=== PATIENT | female | born 1965 | race Caucasian/White ===

== ENCOUNTER → 2017-11-09 | Outpatient (CLI) | payer BC ==
--- NOTE | 2017-11-10 07:49 | XR ---
EXAMINATION TYPE: XR chest 2V DATE OF EXAM: 11/09/2017 COMPARISON: NONE HISTORY: History of asthma with shortness of breath. TECHNIQUE: Frontal and lateral views of the chest are obtained. FINDINGS: There is no focal air space opacity, pleural effusion, or pneumothorax seen. The cardiac silhouette size is mildly enlarged. The osseous structures are intact. IMPRESSION: Mild cardiomegaly without acute pulmonary process.
[2017-11-13 12:10] LABS: Alt. alternata IgE Class CLASS IV; Asperg. fumagatus IgE Class CLASS IV; Bermuda Grass IgE <0.35 kU/L (<0.35); Birch(Com.Silvr) IgE 0.83 kU/L (<0.35); Birch(Com.Silvr) IgE Class CLASS II; Cat Epith & Dander IgE >100.00 kU/L (<0.35); Cat Epith & Dander IgE Class CLASS VI; Clad herbarum IgE 0.55 kU/L (<0.35); Cockroach IgE 0.46 kU/L (<0.35); Dermato. Pteronyssinus IgE <0.35 kU/L (<0.35); Dermato. farinae IgE 0.48 kU/L (<0.35); Dermato. farinae IgE Class CLASS I; Maple (Box Elder) IgE Class CLASS III; Mountain Cedar IgE Class CLASS II; Mouse Urine IgE Class CLASS 0; Nettle IgE Class CLASS II; Oak IgE 0.98 kU/L (<0.35); Penicillium notatum IgE Class CLASS III; Rough Marshelder IgE 0.55 kU/L (<0.35); Rough Marshelder IgE Class CLASS I; Timothy Grass IgE 0.85 kU/L (<0.35); White Ash IgE Class CLASS II
[2017-11-15 13:49] LABS: Alternaria Alternata IgG 3.4 mcg/mL (< 13.6); Aspergillus fumigatus IgG Not detected (Not detected); Aureobasidium pullulans IgG 3.3 mcg/mL (< 13.6); Cladosporium herbarium IgG 9.4 mcg/mL (< 14.7); Phoma ssp. IgG 5.2 mcg/mL (< 6.6); Saccaharomospora viridis Not detected (Not detected); Saccaharopoly. rectivirgula Not detected (Not detected)
== END | disposition home or self-care (01) ==
LOC: RADXRMAIN 16:11
PROVIDERS: ATTEND Internal Medicine Sleep Medicine
DX: I51.7 Cardiomegaly (principal); R05 Cough; B44.1 Other pulmonary aspergillosis
CPT/HCPCS: 36415; 71046; 82785; 86001; 86003; 86606; 86609

== ENCOUNTER → 2018-01-10 | Outpatient (CLI) | payer BC ==
--- NOTE | 2018-01-10 16:20 | CT ---
EXAMINATION TYPE: CT chest wo con DATE OF EXAM: 01/10/2018 COMPARISON: Chest x-ray November 09, 2017 HISTORY: suspected pulmonary fibrosis unspecified per order. Shortness of breath and cough. CT DLP: 196.0 mGycm. Automated Exposure Control for Dose Reduction was Utilized. TECHNIQUE: CT scan of the thorax is performed without IV contrast. High resolution protocol with 1 m m sequences obtained in 10 mm intervals in both supine and prone techniques. FINDINGS: LUNGS: Some respiratory motion artifact degradation present. No suspicious focal consolidation or gladys undglass opacity identified. There is no cyst significant distortion, peripheral reticulation, or fib rosis noted. Mild focal pleural thickening medial right middle lobe is present. No significant pleura l effusion or pneumothorax is identified. Mild right greater than left biapical pleural/parenchymal s carring. No bronchiectasis is seen. No suspicious masses noted. MEDIASTINUM: Lack of IV contrast is noted to limit evaluation for mediastinal and especially hilar a denopathy. There are no definitive greater than 1 cm hilar or mediastinal lymph nodes. No significa nt pericardial effusion is seen. Mild cardiomegaly is redemonstrated OTHER: 1 cm gallstone in gallbladder is present. IMPRESSION: Mild scattered areas of scarring. No significant peripheral fibrosis. No suspicious acute pulmonary process.
== END | disposition home or self-care (01) ==
LOC: RADCTMAIN 15:52
PROVIDERS: ATTEND Internal Medicine Sleep Medicine
DX: J98.4 Other disorders of lung (principal)
CPT/HCPCS: 71250

== ENCOUNTER 2018-09-27 10:29 | Emergency (ER) | payer BC ==
[2018-09-27 10:48] VITALS: RESP 18
[2018-09-27] MEDS ORDERED: KETOROLAC 30 MG/ML 1 ML VIAL IVP STA (11:13)
[2018-09-27] MEDS ORDERED: SODIUM CHLORIDE 0.9% 1,000 ML IV ONE (11:13)
[2018-09-27] MEDS ORDERED: MORPHINE SULFATE 4 MG/ML SYRINGE IVP STA (11:13)
--- NOTE | 2018-09-27 11:35 | ED ---
General Adult HPI - General Chief complaint: Abdominal Pain Stated complaint: Kidney stone Time Seen by Provider: 09/27/18 10:55 Source: patient, RN notes reviewed, old records reviewed Mode of arrival: ambulatory Limitations: no limitations - History of Present Illness Initial comments: 53-year-old female history of previous kidney stone presenting with right flank pain. Patient has had dysuria over the past one week, she was started on ciprofloxacin by her primary care physician for urinary tract infection. She's developed worsening pain and fever. Pain is typical of previous kidney stones. She's had nausea and vomiting. She was no other chronic medical problems, otherwise healthy. - Related Data Home Medications Medication Instructions Recorded Confirmed Ciprofloxacin HCl [Cipro] 500 mg PO Q12HR 09/27/18 09/27/18 Fluticasone/Vilanterol [Breo 1 puff INHALATION RT-DAILY 09/27/18 09/27/18 Ellipta 100-25 Mcg Inhaler] Ibuprofen [Motrin] 600 mg PO Q8HR PRN 09/27/18 09/27/18 Losartan Potassium 100 mg PO DAILY 09/27/18 09/27/18 ZOLMitriptan 5 mg PO DAILY PRN 09/27/18 09/27/18 amLODIPine BESYLATE [Norvasc] 5 mg PO DAILY 09/27/18 09/27/18 cloNIDine HCL 0.3 mg PO DAILY 09/27/18 09/27/18 Previous Rx's Medication Instructions Recorded HYDROcodone/APAP 5-325MG [[place] 1 tab PO Q6HR PRN #12 tab 09/27/18 5-325] Ibuprofen [Motrin] 600 mg PO Q8HR PRN #24 tab 09/27/18 Ondansetron Odt [Zofran Odt] 4 mg PO Q8HR PRN #10 tab 09/27/18 Sulfamethox-Tmp 800-160Mg [Bactrim 1 tab PO Q12HR #28 tab 09/27/18 DS 800-160 mg] Tamsulosin [Flomax] 0.4 mg PO DAILY #30 cap 09/27/18 Allergies Allergy/AdvReac Type Severity Reaction Status Date / Time Penicillins Allergy Unknown Verified 09/27/18 11:37 Childhood Review of Systems ROS Statement: Those systems with pertinent positive or pertinent negative responses have been documented in the HPI. ROS Other: All systems not noted in ROS Statement are negative. Past Medical History Past Medical History: Hypertension Additional Past Medical History / Comment(s): Kidney stones, mitral valve prolapse History of Any Multi-Drug Resistant Organisms: None Reported Additional Past Surgical History / Comment(s): Kidney stone removes Past Psychological History: No Psychological Hx Reported Smoking Status: Never smoker Past Alcohol Use History: None Reported Past Drug Use History: None Reported General Exam Limitations: no limitations General appearance: alert, in no apparent distress Head exam: Present: atraumatic, normocephalic Eye exam: Present: normal appearance, PERRL ENT exam: Present: normal exam Neck exam: Present: normal inspection. Absent: tenderness, meningismus Respiratory exam: Present: normal lung sounds bilaterally. Absent: respiratory distress, wheezes, rales Cardiovascular Exam: Present: regular rate, normal rhythm GI/Abdominal exam: Present: soft. Absent: distended, tenderness Extremities exam: Present: normal inspection, normal capillary refill Back exam: Present: CVA tenderness (R) Neurological exam: Present: alert, oriented X3 Psychiatric exam: Present: normal affect, normal mood Skin exam: Present: warm, dry, intact. Absent: cyanosis, diaphoretic Course Vital Signs 09/27/18 09/27/18 10:42 11:23 Temperature 98.8 F Pulse Rate 89 65 Respiratory 18 18 Rate Blood Pressure 173/102 146/94 O2 Sat by Pulse 98 96 Oximetry Medical Decision Making - Medical Decision Making 53 -year-old female presenting for evaluation of flank pain, consistent with previous kidney stone. Emergency department reveals normal CBC, normal CMP with the exception of mild transaminitis. X-ray shows bilateral nephrolithiasis as well as concern for past. CT is obtained, shows right hydronephrosis, hydroureter, 3 mm distal stone at the UVJ. Urinalysis is consistent with kidney stone, showing 150), 7 white cells and moderate bacteria. Culture is obtained. Patient is currently on antibiotics she will be continued on antibiotics. Regarding cholelithiasis on CT, patient has no right upper quadrant pain or tenderness. She is informed that she has gallstones and will return with development of associated symptoms. She was offered observation for symptomatic control. She declines. Prefers outpatient follow-up. She will be prescribed pain control, antiemetics, Flomax, and antibiotics. She has an appointment with urology in the next week. She will return with worsening or changing symptoms. - Lab Data Result diagrams: 09/27/18 11:15 09/27/18 11:15 Lab Results 09/27/18 09/27/18 09/27/18 Range/Units 11:15 11:15 11:15 WBC 9.9 (3.8-10.6) k/uL RBC 5.00 (3.80-5.40) m/uL Hgb 14.5 (11.4-16.0) gm/dL Hct 43.9 (34.0-46.0) % MCV 87.8 (80.0-100.0) fL MCH 29.0 (25.0-35.0) pg MCHC 33.0 (31.0-37.0) g/dL RDW 14.4 (11.5-15.5) % Plt Count 274 (150-450) k/uL Neutrophils % 71 % Lymphocytes % 14 % Monocytes % 6 % Eosinophils % 6 % Basophils % 1 % Neutrophils # 7.0 (1.3-7.7) k/uL Lymphocytes # 1.4 (1.0-4.8) k/uL Monocytes # 0.6 (0-1.0) k/uL Eosinophils # 0.6 (0-0.7) k/uL Basophils # 0.1 (0-0.2) k/uL PT 9.7 (9.0-12.0) sec INR 0.9 (<1.2) APTT 22.2 (22.0-30.0) sec Sodium 143 (137-145) mmol/L Potassium 3.6 (3.5-5.1) mmol/L Chloride 106 (98-107) mmol/L Carbon Dioxide 28 (22-30) mmol/L Anion Gap 9 mmol/L BUN 19 H (7-17) mg/dL Creatinine 0.64 (0.52-1.04) mg/dL Est GFR (CKD-EPI)AfAm >90 (>60 ml/min/1.73 sqM) Est GFR (CKD-EPI)NonAf >90 (>60 ml/min/1.73 sqM) Glucose 88 (74-99) mg/dL Plasma Lactic Acid Jose (0.7-2.0) mmol/L Calcium 9.6 (8.4-10.2) mg/dL Total Bilirubin 0.6 (0.2-1.3) mg/dL AST 53 H (14-36) U/L ALT 65 H (9-52) U/L Alkaline Phosphatase 95 (38-126) U/L Total Protein 7.2 (6.3-8.2) g/dL Albumin 4.4 (3.5-5.0) g/dL Amylase 41 (30-110) U/L Lipase 84 (23-300) U/L Urine Color Urine Appearance (Clear) Urine pH (5.0-8.0) Ur Specific [place] (1.001-1.035) Urine Protein (Negative) Urine Glucose (UA) (Negative) Urine Ketones (Negative) Urine Blood (Negative) Urine Nitrite (Negative) Urine Bilirubin (Negative) Urine Urobilinogen (<2.0) mg/dL Ur Leukocyte Esterase (Negative) Urine RBC (0-5) /hpf Urine WBC (0-5) /hpf Ur Squamous Epith Cells (0-4) /hpf Urine Bacteria (None) /hpf Urine Mucus (None) /hpf 09/27/18 09/27/18 Range/Units 11:15 11:15 WBC (3.8-10.6) k/uL RBC (3.80-5.40) m/uL Hgb (11.4-16.0) gm/dL Hct (34.0-46.0) % MCV (80.0-100.0) fL MCH (25.0-35.0) pg MCHC (31.0-37.0) g/dL RDW (11.5-15.5) % Plt Count (150-450) k/uL Neutrophils % % Lymphocytes % % Monocytes % % Eosinophils % % Basophils % % Neutrophils # (1.3-7.7) k/uL Lymphocytes # (1.0-4.8) k/uL Monocytes # (0-1.0) k/uL Eosinophils # (0-0.7) k/uL Basophils # (0-0.2) k/uL PT (9.0-12.0) sec INR (<1.2) APTT (22.0-30.0) sec Sodium (137-145) mmol/L Potassium (3.5-5.1) mmol/L Chloride (98-107) mmol/L Carbon Dioxide (22-30) mmol/L Anion Gap mmol/L BUN (7-17) mg/dL Creatinine (0.52-1.04) mg/dL Est GFR (CKD-EPI)AfAm (>60 ml/min/1.73 sqM) Est GFR (CKD-EPI)NonAf (>60 ml/min/1.73 sqM) Glucose (74-99) mg/dL Plasma Lactic Acid Jose 1.4 (0.7-2.0) mmol/L Calcium (8.4-10.2) mg/dL Total Bilirubin (0.2-1.3) mg/dL AST (14-36) U/L ALT (9-52) U/L Alkaline Phosphatase (38-126) U/L Total Protein (6.3-8.2) g/dL Albumin (3.5-5.0) g/dL Amylase (30-110) U/L Lipase (23-300) U/L Urine Color Yellow Urine Appearance Cloudy H (Clear) Urine pH 6.0 (5.0-8.0) Ur Specific [place] 1.024 (1.001-1.035) Urine Protein Trace H (Negative) Urine Glucose (UA) Negative (Negative) Urine Ketones Negative (Negative) Urine Blood Moderate H (Negative) Urine Nitrite Negative (Negative) Urine Bilirubin Negative (Negative) Urine Urobilinogen <2.0 (<2.0) mg/dL Ur Leukocyte Esterase Trace H (Negative) Urine RBC 159 H (0-5) /hpf Urine WBC 7 H (0-5) /hpf Ur Squamous Epith Cells 13 H (0-4) /hpf Urine Bacteria Moderate H (None) /hpf Urine Mucus Moderate H (None) /hpf Disposition Clinical Impression: Cholelithiasis, Nephrolithiasis Disposition: HOME SELF-CARE Condition: Good Instructions (If sedation given, give patient instructions): Kidney Stones (ED), Renal Colic (ED), Gallstones (ED) Prescriptions: Sulfamethox-Tmp 800-160Mg [Bactrim DS 800-160 mg] 1 tab PO Q12HR #28 tab Tamsulosin [Flomax] 0.4 mg PO DAILY #30 cap Ibuprofen [Motrin] 600 mg PO Q8HR PRN #24 tab PRN Reason: Pain HYDROcodone/APAP 5-325MG [[place] 5-325] 1 tab PO Q6HR PRN #12 tab PRN Reason: Pain Ondansetron Odt [Zofran Odt] 4 mg PO Q8HR PRN #10 tab PRN Reason: Vomiting Is patient prescribed a controlled substance at d/c from ED?: No Referrals: Pool Tavares DO [Primary Care Provider] - 1-2 days Time of Disposition: 13:25
[2018-09-27 12:19] LABS: Basophils # (A) 0.1 k/uL (0-0.2); Basophils % (A) 1 %; Eosinophils # (A) 0.6 k/uL (0-0.7); Eosinophils % (A) 6 %; HCT 43.9 % (34.0-46.0); HGB 14.5 gm/dL (11.4-16.0); Lymphocytes # (A) 1.4 k/uL (1.0-4.8); Lymphocytes % (A) 14 %; MCV 87.8 fL (80.0-100.0); Mean Platelet Volume 9.8; Monocytes # (A) 0.6 k/uL (0-1.0); Monocytes % (A) 6 %; Neutrophils % (A) 71 %; Platelet Count 274 k/uL (150-450); RDW 14.4 % (11.5-15.5); WBC 9.9 k/uL (3.8-10.6)
[2018-09-27 12:22] LABS: Appearance,Urine Cloudy (Clear); Bacteria,Urine Moderate /hpf; Bilirubin,Urine Negative (Negative); Blood,Urine Moderate (Negative); Color,Urine Yellow; Glucose,Urine (UA) Negative (Negative); Ketones,Urine Negative (Negative); Leukocyte Esterase,Urine Trace (Negative); Mucus,Urine Moderate /hpf; Nitrite,Urine Negative (Negative); Protein,Urine Trace (Negative); RBC,Urine 159 /hpf (0-5); Specific Gravity,Urine 1.024 (1.001-1.035); Squamous Epithelial Cell,Urine 13 /hpf (0-4); Urobilinogen,Urine <2.0 mg/dL (<2.0); WBC,Urine 7 /hpf (0-5)
--- NOTE | 2018-09-27 12:33 | XR ---
EXAMINATION TYPE: XR KUB DATE OF EXAM: 09/27/2018 COMPARISON: NONE HISTORY: Right flank pain TECHNIQUE: One view abdominal series FINDINGS: The osseous structures are intact. The bowel gas pattern is nonspecific. Intrauterine device noted. Calcifications in the pelvis are nonspecific. Arthropathy of the hips.. Suspect punctate calcifications overlying both kidneys. Larger calcification right upper quadrant lik batsheva related to gallstones. IMPRESSION: 1. Tiny bilateral nephrolithiasis all measuring less than 5 millimeters. 2. Suspect gallstone.
--- NOTE | 2018-09-27 12:39 | CT ---
EXAMINATION TYPE: CT abdomen pelvis wo con DATE OF EXAM: 09/27/2018 COMPARISON: None HISTORY: Right sided flank pain with increased frequency of urination CT DLP: 715.5 mGycm Automated exposure control for dose reduction was used. TECHNIQUE: Helical acquisition of images was performed from the lung bases through the pelvis. FINDINGS: LUNG BASES: Subsegmental changes involving the posterior lung bases most typical of atelectasis. Hear t is mildly prominent. Trace of pericardial fluid noted. LIVER/GB: Assessment liver limited by lack of contrast. There is a large gallstone. PANCREAS: No significant abnormality is seen. SPLEEN: No significant abnormality is seen. ADRENALS: No significant abnormality is seen. KIDNEYS: Right kidney: There is moderate right hydronephrosis secondary to a right UVJ calcification measuring approximately 3 mm. There are approximately 5 punctate less than 5 mm calcifications involving the right kidney. Area of low density measuring less than a centimeter within the mid to upper pole right kidney is ind eterminate by noncontrast technique. Left kidney: There are approximately 7 less than 5 mm calculi scattered throughout the left renal col lecting system with no evidence of hydronephrosis. FREE AIR: No free air is visualized RETROPERITONEAL ADENOPATHY: None visualized REPRODUCTIVE ORGANS: Intrauterine device noted URINARY BLADDER: No significant abnormality is seen. PELVIC ADENOPATHY: None visualized. OSSEOUS STRUCTURES: No significant abnormality is seen. BOWEL: Bowel gas pattern nonspecific with no obstruction. Appendix normal. Small hiatal hernia noted . Occasional colonic diverticula identified with no CT evidence of diverticulitis. OTHER: Aorta of normal caliber. No free fluid. IMPRESSION: BILATERAL NEPHROLITHIASIS WITH MODERATE RIGHT HYDRONEPHROSIS SECONDARY TO OBSTRUCTING 3 MM RIGHT UVJ CALCIFICATION CHOLELITHIASIS.
[2018-09-27 12:41] LABS: ALT 65 U/L (9-52); AST 53 U/L (14-36); Albumin 4.4 g/dL (3.5-5.0); Alkaline Phosphatase 95 U/L (38-126); Amylase 41 U/L (30-110); Anion Gap 9 mmol/L; Blood Urea Nitrogen 19 mg/dL (7-17); Calcium 9.6 mg/dL (8.4-10.2); Carbon Dioxide 28 mmol/L (22-30); Chloride 106 mmol/L (98-107); Glucose 88 mg/dL (74-99); Lipase 84 U/L (23-300); Potassium 3.6 mmol/L (3.5-5.1); Sodium 143 mmol/L (137-145); Total Bilirubin 0.6 mg/dL (0.2-1.3); Total Protein 7.2 g/dL (6.3-8.2)
[2018-09-27 12:45] LABS: INR 0.9 (<1.2); Partial Thromboplastin Time 22.2 sec (22.0-30.0); Prothrombin Time 9.7 sec (9.0-12.0)
[2018-09-27 13:47] VITALS: BP 137/77; PULSE 67; TEMP 98.6
== END 2018-09-27 13:46 | disposition home or self-care (01) ==
LOC: EC 10:29
DX: N13.2 Hydronephrosis with renal and ureteral calculous obstruction (principal); K80.20 Calculus of gallbladder without cholecystitis without obstruction; I10 Essential (primary) hypertension; Z86.79 Personal history of other diseases of the circulatory system; Z98.890 Other specified postprocedural states; Z79.51 Long term (current) use of inhaled steroids; Z79.899 Other long term (current) drug therapy; Z88.0 Allergy status to penicillin
CPT/HCPCS: 36415; 80053; 82150; 83605; 83690; 85025; 85610; 85730; 81001; 87086; 74018; 74176; 99285; 96374; 96375; 96361; J2270; J1885

== ENCOUNTER 2021-02-01 12:50 | Emergency (ER) | payer BC ==
[2021-02-01 13:13] VITALS: TEMP 99.3
[2021-02-01] MEDS ORDERED: SODIUM CHLORIDE 0.9% 1,000 ML IV STA (13:38)
[2021-02-01] MEDS ORDERED: TAMSULOSIN 0.4 MG CAP.ER.24H PO STA (13:38)
[2021-02-01] MEDS ORDERED: ONDANSETRON 4 MG/2 ML VIAL IVP STA (13:38)
[2021-02-01] MEDS ORDERED: FAMOTIDINE 20 MG/2 ML VIAL IV STA (13:38)
[2021-02-01] MEDS ORDERED: KETOROLAC 15 MG/ML 1 ML VIAL IVP STA (13:38)
--- NOTE | 2021-02-01 13:41 | ED ---
Abdominal Pain HPI - General Chief Complaint: Abdominal Pain Stated Complaint: flank pain Time Seen by Provider: 02/01/21 13:14 Source: patient Mode of arrival: ambulatory Limitations: no limitations - History of Present Illness Initial Comments: 55-year-old female history of kidney stones presents to the emergency department with a chief complaint of flank pain. Patient reports a sudden onset that has started several days ago. States starting her flank, right-sided with mild radiation to the right groin region. Patient reports this feels very typical kidney stone. She also noticed some hematuria but denies any dysuria, increased urgency or frequency. Denies any associated fevers or chills. States her urologist prefers that she obtains a CAT scan whenever she developed the symptoms. Patient reports a sharp shooting pain with occasional nausea but no vomiting. Denies any vaginal symptoms at this time. - Related Data Home Medications Medication Instructions Recorded Confirmed Fluticasone/Vilanterol [Breo 1 puff INHALATION RT-DAILY 09/27/18 02/01/21 Ellipta 100-25 Mcg Inhaler] Losartan Potassium 100 mg PO DAILY 09/27/18 02/01/21 ZOLMitriptan 5 mg PO DAILY PRN 09/27/18 02/01/21 cloNIDine HCL [Catapres] 0.3 mg PO HS 09/27/18 02/01/21 Albuterol Sulfate [Proair Hfa] 2 puff INHALATION RT-Q4H PRN 02/01/21 02/01/21 Aspirin EC [Ecotrin Low Dose] 81 mg PO DAILY 02/01/21 02/01/21 Atorvastatin Calcium [Lipitor] 10 mg PO HS 02/01/21 02/01/21 Cyclobenzaprine [Flexeril] 10 mg PO TID PRN 02/01/21 02/01/21 Multivitamins, Thera [Multivitamin 1 tab PO DAILY 02/01/21 02/01/21 (formulary)] Topiramate [Topamax] 50 mg PO DAILY 02/01/21 02/01/21 amLODIPine [Norvasc] 10 mg PO DAILY 02/01/21 02/01/21 Previous Rx's Medication Instructions Recorded HYDROcodone/APAP 5-325MG [[place] 1 tab PO Q6HR PRN #12 tab 09/27/18 5-325] HYDROcodone/APAP 5-325MG [[place] 1 tab PO Q6HR PRN 3 Days #12 tab 02/01/21 5-325] Ondansetron Odt [Zofran Odt] 4 mg PO Q8HR PRN #10 tab 02/01/21 Tamsulosin [Flomax] 0.4 mg PO DAILY #7 cap 02/01/21 Allergies Allergy/AdvReac Type Severity Reaction Status Date / Time Penicillins Allergy Unknown Verified 02/01/21 16:01 Childhood Review of Systems ROS Statement: Those systems with pertinent positive or pertinent negative responses have been documented in the HPI. ROS Other: All systems not noted in ROS Statement are negative. Past Medical History Past Medical History: Hypertension Additional Past Medical History / Comment(s): Kidney stones, mitral valve prolapse History of Any Multi-Drug Resistant Organisms: None Reported Additional Past Surgical History / Comment(s): Kidney stone removes Past Psychological History: No Psychological Hx Reported Smoking Status: Never smoker Past Alcohol Use History: None Reported Past Drug Use History: None Reported General Exam Limitations: no limitations General appearance: alert, in no apparent distress Head exam: Present: atraumatic, normocephalic, normal inspection Eye exam: Present: normal appearance, PERRL, EOMI Pupils: Present: normal accommodation ENT exam: Present: normal exam, normal oropharynx, mucous membranes moist Neck exam: Present: normal inspection, full ROM. Absent: tenderness, lymphadenopathy Respiratory exam: Present: normal lung sounds bilaterally. Absent: respiratory distress Cardiovascular Exam: Present: regular rate, normal rhythm, normal heart sounds. Absent: systolic murmur GI/Abdominal exam: Present: soft, tenderness (Right flank tenderness). Absent: distended, guarding, rebound, rigid Extremities exam: Present: normal inspection, full ROM. Absent: tenderness Back exam: Present: normal inspection, full ROM, tenderness, CVA tenderness (R). Absent: CVA tenderness (L), muscle spasm, paraspinal tenderness, vertebral tenderness Neurological exam: Present: alert, oriented X3 Psychiatric exam: Present: normal affect, normal mood Skin exam: Present: warm, dry, intact, normal color Course Vital Signs 02/01/21 02/01/21 02/01/21 13:11 15:13 17:16 Temperature 99.3 F Pulse Rate 115 H 63 70 Respiratory 18 16 16 Rate Blood Pressure 148/73 127/80 141/77 O2 Sat by Pulse 99 99 98 Oximetry Medical Decision Making - Medical Decision Making 55-year-old female history of kidney stones presents to the emergency department with a chief complaint of flank pain. She had right CVA tenderness and right flank tenderness. No right upper quadrant tenderness. Negative Mccloud sign. Laboratory work reveals mild leukocytosis. Urine positive for hematuria but no signs of urinary tract infection. CT of abdomen and pelvis reveals cholelithiasis. There is also multiple bilateral kidney stones, the biggest one measuring up to 5 mm. There is no obstructive renal stones at this time. Patient was advised to follow-up with her urologist. I will discharge her with [place] for pain. She is understanding of the side effects of medication. She is agreeable to proper usage. I will also prescribe Zofran and Flomax to the pharmacy. Return parameters were discussed with patient is understanding and agreeable. Case discussed with Dr. Pendleton - Lab Data Result diagrams: 02/01/21 14:03 02/01/21 15:18 Lab Results 02/01/21 02/01/21 02/01/21 Range/Units 14:03 15:18 16:25 WBC 10.9 H (3.8-10.6) k/uL RBC 4.95 (3.80-5.40) m/uL Hgb 15.2 (11.4-16.0) gm/dL Hct 45.6 (34.0-46.0) % MCV 92.1 (80.0-100.0) fL MCH 30.8 (25.0-35.0) pg MCHC 33.4 (31.0-37.0) g/dL RDW 13.5 (11.5-15.5) % Plt Count 176 (150-450) k/uL MPV 10.5 Neutrophils % 78 % Lymphocytes % 14 % Monocytes % 5 % Eosinophils % 1 % Basophils % 0 % Neutrophils # 8.4 H (1.3-7.7) k/uL Lymphocytes # 1.6 (1.0-4.8) k/uL Monocytes # 0.6 (0-1.0) k/uL Eosinophils # 0.2 (0-0.7) k/uL Basophils # 0.0 (0-0.2) k/uL Sodium 138 (137-145) mmol/L Potassium 3.9 (3.5-5.1) mmol/L Chloride 106 (98-107) mmol/L Carbon Dioxide 26 (22-30) mmol/L Anion Gap 6 mmol/L BUN 28 H (7-17) mg/dL Creatinine 0.65 (0.52-1.04) mg/dL Est GFR (CKD-EPI)AfAm >90 (>60 ml/min/1.73 sqM) Est GFR (CKD-EPI)NonAf >90 (>60 ml/min/1.73 sqM) Glucose 103 H (74-99) mg/dL Calcium 9.1 (8.4-10.2) mg/dL Total Bilirubin 0.4 (0.2-1.3) mg/dL AST 21 (14-36) U/L ALT 16 (4-34) U/L Alkaline Phosphatase 71 (38-126) U/L Total Protein 6.4 (6.3-8.2) g/dL Albumin 3.6 (3.5-5.0) g/dL Lipase 87 (23-300) U/L Urine Color Yellow Urine Appearance Clear (Clear) Urine pH 5.5 (5.0-8.0) Ur Specific [place] 1.037 H (1.001-1.035) Urine Protein Trace H (Negative) Urine Glucose (UA) Negative (Negative) Urine Ketones Trace H (Negative) Urine Blood Moderate H (Negative) Urine Nitrite Negative (Negative) Urine Bilirubin Negative (Negative) Urine Urobilinogen <2.0 (<2.0) mg/dL Ur Leukocyte Esterase Negative (Negative) Urine RBC 9 H (0-5) /hpf Urine WBC 4 (0-5) /hpf Ur Squamous Epith Cells 1 (0-4) /hpf Urine Mucus Moderate H (None) /hpf Disposition Clinical Impression: Kidney stones Disposition: HOME SELF-CARE Condition: Stable Instructions (If sedation given, give patient instructions): Kidney Stones (ED) Additional Instructions: Follow-up with urologist. Return to emergency department if symptoms worsen. Prescriptions: Tamsulosin [Flomax] 0.4 mg PO DAILY #7 cap HYDROcodone/APAP 5-325MG [[place] 5-325] 1 tab PO Q6HR PRN 3 Days #12 tab PRN Reason: Pain Ondansetron Odt [Zofran Odt] 4 mg PO Q8HR PRN #10 tab PRN Reason: Nausea Is patient prescribed a controlled substance at d/c from ED?: Yes If prescribed controlled substance>3 days was MAPS reviewed?: Prescribed <3 Days Referrals: Pool Tavares DO [Primary Care Provider] - 1-2 days Time of Disposition: 17:03
[2021-02-01 14:41] LABS: Basophils % (A) 0 %; Eosinophils # (A) 0.2 k/uL (0-0.7); Eosinophils % (A) 1 %; HCT 45.6 % (34.0-46.0); HGB 15.2 gm/dL (11.4-16.0); Lymphocytes # (A) 1.6 k/uL (1.0-4.8); Lymphocytes % (A) 14 %; MCH 30.8 pg (25.0-35.0); MCHC 33.4 g/dL (31.0-37.0); MCV 92.1 fL (80.0-100.0); Mean Platelet Volume 10.5; Monocytes # (A) 0.6 k/uL (0-1.0); Monocytes % (A) 5 %; Neutrophils # (A) 8.4 k/uL (1.3-7.7); Neutrophils % (A) 78 %; Platelet Count 176 k/uL (150-450); RBC 4.95 m/uL (3.80-5.40); RDW 13.5 % (11.5-15.5); WBC 10.9 k/uL (3.8-10.6)
[2021-02-01] MEDS ORDERED: MORPHINE SULFATE 4 MG/ML SYRINGE IVP STA (14:48)
--- NOTE | 2021-02-01 14:53 | CT ---
EXAMINATION TYPE: CT abdomen pelvis wo con DATE OF EXAM: 02/01/2021 COMPARISON: HISTORY: Right flank pain. CT DLP: 860 mGycm Automated exposure control for dose reduction was used. TECHNIQUE: Helical acquisition of images was performed from the lung bases through the pelvis. FINDINGS: LUNG BASES: No significant abnormality is appreciated. LIVER/GB: Large gallstone. PANCREAS: No significant abnormality is seen. SPLEEN: No significant abnormality is seen. ADRENALS: No significant abnormality is seen. KIDNEYS: There are multiple less than 5 mm bilateral renal calculi. Approximately 10 calculi seen bilaterally. No hydronephrosis. ADENOPATHY: None visualized. OSSEOUS STRUCTURES: No significant abnormality is seen. BOWEL: Bowel gas pattern nonspecific with changes of diverticulosis. Appendix normal. OTHER: Small fat-containing periumbilical hernia. No free fluid. Intrauterine device incidentally not ed. IMPRESSION: 1. Cholelithiasis 2. Nonobstructing bilateral renal calculi
[2021-02-01 15:16] VITALS: RESP 16
[2021-02-01 15:43] LABS: ALT 16 U/L (4-34); AST 21 U/L (14-36); African American GFR (CKD) >90 (>60 ml/min/1.73 sqM); Albumin 3.6 g/dL (3.5-5.0); Alkaline Phosphatase 71 U/L (38-126); Anion Gap 6 mmol/L; Blood Urea Nitrogen 28 mg/dL (7-17); Calcium 9.1 mg/dL (8.4-10.2); Carbon Dioxide 26 mmol/L (22-30); Chloride 106 mmol/L (98-107); Glucose 103 mg/dL (74-99); Lipase 87 U/L (23-300); Non-African American GFR(CKD) >90 (>60 ml/min/1.73 sqM); Potassium 3.9 mmol/L (3.5-5.1); Sodium 138 mmol/L (137-145); Total Bilirubin 0.4 mg/dL (0.2-1.3); Total Protein 6.4 g/dL (6.3-8.2)
[2021-02-01] MEDS ORDERED: HYDROmorphone 0.5 MG/0.5 ML SYRINGE IVP STA (16:33)
[2021-02-01 16:39] LABS: Appearance,Urine Clear (Clear); Bilirubin,Urine Negative (Negative); Blood,Urine Moderate (Negative); Color,Urine Yellow; Glucose,Urine (UA) Negative (Negative); Ketones,Urine Trace (Negative); Leukocyte Esterase,Urine Negative (Negative); Mucus,Urine Moderate /hpf; Nitrite,Urine Negative (Negative); PH, Urine 5.5 (5.0-8.0); Protein,Urine Trace (Negative); RBC,Urine 9 /hpf (0-5); Specific Gravity,Urine 1.037 (1.001-1.035); Squamous Epithelial Cell,Urine 1 /hpf (0-4); Urobilinogen,Urine <2.0 mg/dL (<2.0); WBC,Urine 4 /hpf (0-5)
[2021-02-01 17:17] VITALS: BP 141/77; PULSE 70
== END 2021-02-01 17:31 | disposition home or self-care (01) ==
LOC: EC 12:50
DX: N20.0 Calculus of kidney (principal); I10 Essential (primary) hypertension; Z79.82 Long term (current) use of aspirin; Z88.0 Allergy status to penicillin; Z87.442 Personal history of urinary calculi
CPT/HCPCS: 99284; 96374; 96375 ×4; 96361 ×3; 36415; 80053; 83690; 85025; 81001; 74176; J2270; J2405; J1885; J1170

== ENCOUNTER → 2021-02-05 | Day surgery (SDC) | payer BC ==
[~2021-02-05] MED LIST: DEXAMETHASONE SOD PHOSPHATE 4 MG/ML 1 ML VIAL IV ONE; HYDROmorphone 0.5 MG/0.5 ML SYRINGE IVP ONE; KETOROLAC 15 MG/ML 1 ML VIAL IVP ONE; KETOROLAC 15 MG/ML 1 ML VIAL ONE; LACTATED RINGERS 1,000 ML IV ONE; LEVOFLOXACIN 500MG-D5W PMX 500 MG in DEXTROSE/WATER 1 100ML.BAG IVPB PRN; LIDOCAINE 1% (10MG/ML) FOR IV START INTRADERMA ONE; LIDOCAINE 1% INJ 10MG/ML (20 ML MDV) ONE; MIDAZOLAM 2 MG/2 ML VIAL ONE; ONDANSETRON 4 MG/2 ML VIAL IVP ONE; ONDANSETRON 4 MG/2 ML VIAL ONE; PROPOFOL 10 MG/ML 20 ML VIAL IV ONE; SUCCINYLCHOLINE CHLORIDE 100 MG/5 ML SYR IV ONE; ePHEDrine SULFATE/0.9% NACL/PF 50 MG/5 ML SYRINGE IV ONE; fentaNYL (PF) 50 MCG/ML 2 ML AMP ONE
--- NOTE | 2021-02-05 06:56 | P.GSHP ---
History of Present Illness H&P Date: 02/05/21 Chief Complaint: Right flank pain The patient is a 55-year-old white female with a history of urolithiasis. She was under went ureteroscopic removal of a calculus in 2013. She now presents with right lower back pain radiating to the right groin, which is exacerbated by certain movements. On February 04, she began to experience numbness in her leg. CT scan shows approximately 10 renal calculi measuring up to 5 mm in size, predominantly on the right side. Specifically, there appear to be 5 right renal calculi, the largest being in the right upper pole. - Constitutional Constitutional: Denies chills, Denies fever - Gastrointestinal Gastrointestinal: Reports nausea - Genitourinary (Female) Genitourinary: Reports flank pain, Reports hematuria, Reports kidney stones Past Medical History Past Medical History: Hypertension Additional Past Medical History / Comment(s): Kidney stones, mitral valve prolapse History of Any Multi-Drug Resistant Organisms: None Reported Additional Past Surgical History / Comment(s): Kidney stone removes Past Psychological History: No Psychological Hx Reported Smoking Status: Never smoker Past Alcohol Use History: None Reported Past Drug Use History: None Reported Medications and Allergies Home Medications Medication Instructions Recorded Confirmed Type Fluticasone/Vilanterol [Breo 1 puff INHALATION RT-DAILY 09/27/18 02/01/21 History Ellipta 100-25 Mcg Inhaler] HYDROcodone/APAP 5-325MG [[place] 1 tab PO Q6HR PRN #12 tab 09/27/18 02/01/21 Rx 5-325] Losartan Potassium 100 mg PO DAILY 09/27/18 02/01/21 History ZOLMitriptan 5 mg PO DAILY PRN 09/27/18 02/01/21 History cloNIDine HCL [Catapres] 0.3 mg PO HS 09/27/18 02/01/21 History Albuterol Sulfate [Proair Hfa] 2 puff INHALATION RT-Q4H PRN 02/01/21 02/01/21 History Aspirin EC [Ecotrin Low Dose] 81 mg PO DAILY 02/01/21 02/01/21 History Atorvastatin Calcium [Lipitor] 10 mg PO HS 02/01/21 02/01/21 History Cyclobenzaprine [Flexeril] 10 mg PO TID PRN 02/01/21 02/01/21 History HYDROcodone/APAP 5-325MG [[place] 1 tab PO Q6HR PRN 3 Days #12 tab 02/01/21 Rx 5-325] Multivitamins, Thera [Multivitamin 1 tab PO DAILY 02/01/21 02/01/21 History (formulary)] Ondansetron Odt [Zofran Odt] 4 mg PO Q8HR PRN #10 tab 02/01/21 Rx Tamsulosin [Flomax] 0.4 mg PO DAILY #7 cap 02/01/21 Rx Topiramate [Topamax] 50 mg PO DAILY 02/01/21 02/01/21 History amLODIPine [Norvasc] 10 mg PO DAILY 02/01/21 02/01/21 History Allergies Allergy/AdvReac Type Severity Reaction Status Date / Time Penicillins Allergy Unknown Verified 02/01/21 16:01 Childhood Surgical - Exam - General well developed, well nourished, no distress - Respiratory normal respiratory effort - Abdomen Soft, non-distended, no mass. Right CVA tenderness is noted. - Psychiatric oriented to time, oriented to person, oriented to place, speech is normal, memory intact Results - Imaging CT scan - abdomen: report reviewed, image reviewed Assessment and Plan (1) Kidney stones Current Visit: No Status: Acute Code(s): N20.0 - CALCULUS OF KIDNEY SNOMED Code(s): 30657336 Plan: I had a lengthy discussion with the patient, explaining that her pain is in excess of what would be expected given her CT scan findings. The presence of numbness in her legs suggests the possibility that her pain is musculoskeletal in origin. She will undergo cystoscopy, right retrograde pyelogram, right ureteroscopy with Holmium laser lithotripsy, right ureteral stent insertion. This has been reviewed in detail with the patient, including potential risks which include anesthesia, bleeding, infection, and ureteral injury. If her pain fails to resolve, she'll be advised to undergo formal evaluation of her back.
--- NOTE | 2021-02-05 07:25 | XR ---
KUB HISTORY: Preop right-sided kidney stones KUB and 2 images correlated prior KUB 09/27/2018, CT 02/01/2021 There is retained fecal debris throughout the distribution of the colon, overlying bowel gas may obsc ure underlying detail. Intrauterine contraceptive device is noted within the pelvis. There are multip le calcifications seen within the pelvis which likely represent phleboliths. Multiple punctate calcif ications are present within the kidneys. IMPRESSION: Bilateral nephrolithiasis.
--- NOTE | 2021-02-05 17:41 | P.OP ---
Date of Procedure: 02/05/21 Preoperative Diagnosis: Right renal calculi Postoperative Diagnosis: Same Procedure(s) Performed: Cystoscopy, right retrograde pyelogram, right ureteroscopy with Holmium laser lithotripsy, right ureteral stent insertion Anesthesia: ALEXSANDERA Surgeon: Satya Watkins Estimated Blood Loss (ml): 0 IV fluids (ml): 600 Pathology: none sent Condition: stable Disposition: PACU Indications for Procedure: The patient is a 55-year-old white female with a history of urolithiasis. She was under went ureteroscopic removal of a calculus in 2013. She now presents with right lower back pain radiating to the right groin, which is exacerbated by certain movements. On February 04, she began to experience numbness in her leg. CT scan shows approximately 10 renal calculi measuring up to 5 mm in size, predominantly on the right side. Specifically, there appear to be 5 right renal calculi, the largest being in the right upper pole. The patient has elected to undergo ureteroscopic removal of her right renal calculi. However, it was made clear to her that her symptoms are suggestive of a musculoskeletal origin. Operative Findings: Several right renal calculi, likely composed of calcium oxalate monohydrate. All fragmented completely. Description of Procedure: The patient was taken to the operating room and placed in the dorsolithotomy position, with legs supported in Blue stirrups. The external genitalia was prepped and draped sterilely. The 30 lens was used to introduce the 21-Moldovan Ernandez cystoscopic sheath through the urethra and into the bladder under direct vision. The bladder was examined in its entirety. Both ureteral orifices were normal anatomic location and configuration, and clear urine effluxed from both. No tumors or foreign bodies were seen. Using a 10-Moldovan cone-tipped catheter, a right retrograde pyelogram was performed. A questionable area of narrowing was seen within the right distal ureter. The ureter otherwise appeared normal, as did the intrarenal collecting system. 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 No filling defects were seen. The Ernandez semirigid ureteroscope was advanced into the bladder, and the right ureteral orifice was cannulated.the ureteroscope was slowly advanced under direct vision, up to the right proximal ureter. No calculi were seen. The ureteroscope was removed, and the cystoscope was replaced into the bladder. A 0.038 inch Glidewire was passed through the cystoscope. The ureteral orifice was cannulated, and the Glidewire was advanced up to the renal pelvis. The cystoscope was removed, and an 11/13-Moldovan ureteral access catheter was passed over the wire. However, within the distal ureter was an area of narrowing through which the access catheter sheath could not be passed. Therefore, this was removed and the 11-Moldovan obturator was passed over the wire, up to the proximal ureter. The flexible ureteroscope was then passed over the wire, up to the right renal pelvis. The 272 micron Holmium laser probe was passed through the ureteroscope, and each calyx was examined. The 5 mm upper pole calculus was located, and 2 lower pole calculi were as well. Lithotripsy was performed, fragmenting all calculi until there were no residual calculus fragments exceeding the size of the fiber tip. The calculi were dense, likely composed of calcium oxalate monohydrate. The Glidewire was then passed through the ureteroscope, which was withdrawn. The ureter was inspected, and there was no evidence of ureteral trauma. The Glidewire was backloaded into the cystoscope, which was passed into the bladder. A 26 cm, 4.8-Moldovan double-J ureteral stent was placed over the wire. Proper stent positioning was verified fluoroscopically and endoscopically. The bladder was emptied and the cystoscope removed. The patient tolerated the procedure well and was taken to the recovery room in stable condition. MELISA [facility] Report: Procedure Acuity: Urgent Stone Size and Location: Several right renal calculi, largest 5 mm right upper pole Ureteral Dilation: Serial Dilation Ureteral Access Sheath Used: No Stone Sent for Analysis: No All Stones/Fragments Were Removed with a Basket: No Complications: No Preoperative Antibiotics Given: Yes Stent Placed: Yes If Stent Placed, Was String Left Attached: No If Stent Placed, When is it to be Removed: 1 week Discharge Medications: Tamsulosin
[2021-02-05 17:57] VITALS: RESP 16; TEMP 97.7
[2021-02-05 18:52] VITALS: BP 147/87; PULSE 94
--- NOTE | 2021-02-06 08:23 | FL ---
Fluoroscopy HISTORY: Stent placement, lithotripsy 93 seconds fluoroscopy time supplied to the referring clinician. 4 intraoperative C-arm images docum ent the procedure. See dictated report from urology.
== END | disposition home or self-care (01) ==
LOC: OR 06:32
PROVIDERS: ATTEND Urology
DX: N20.0 Calculus of kidney (principal); I10 Essential (primary) hypertension; I34.1 Nonrheumatic mitral (valve) prolapse; Z79.82 Long term (current) use of aspirin; Z87.442 Personal history of urinary calculi; Z79.51 Long term (current) use of inhaled steroids; Z79.899 Other long term (current) drug therapy
CPT/HCPCS: 52356; 74420; 74018; C2625; C1758; C1769 ×2; J1100; J2405; J1956; J1885; J1170

== ENCOUNTER → 2023-01-23 | Outpatient (CLI) | payer BC ==
--- NOTE | 2023-01-23 13:07 | US ---
EXAMINATION TYPE: US venous doppler duplex UE RT DATE OF EXAM: 01/23/2023 COMPARISON: NONE CLINICAL INDICATION: Female, 57 years old with history of RUE; R22.31 Localized swelling; M79.621 LYLA N; Right arm swelling x 3 weeks SIDE PERFORMED: Right There is noncompressible vessels seen throughout the loops of the right upper extremity. Doppler flow is seen. Right Arm: No definitive evidence of DVT. IMPRESSION: Grayscale, color doppler, spectral doppler imaging performed of the deep veins of the upper extremiti es. There is normal flow, compressibility and vascular waveforms.
== END | disposition home or self-care (01) ==
LOC: RADUSWWP 12:09
PROVIDERS: ATTEND Orthopaedic Surgery Hand Surgery
DX: R22.31 Localized swelling, mass and lump, right upper limb (principal); M79.621 Pain in right upper arm

== ENCOUNTER → 2023-01-27 | Outpatient (CLI) | payer BC ==
--- NOTE | 2023-01-30 11:47 | CT ---
EXAMINATION TYPE: CT angio forearm RT DATE OF EXAM: 01/27/2023 4:51 PM COMPARISON: HISTORY: Pain in RT arm/hand. Trigger finger in RT hand. No injury. CT DLP: 419.4 mGycm Automated exposure control for dose reduction was used. TECHNIQUE: Performed with IV Contrast, patient injected with 100 ml mL of Isovue 370. . FINDINGS: On the visualized portion of the aortic arch is patent. Subclavian artery is patent. Axillary artery is patent. Brachial artery and the brachial artery enhance normally. There is enhancement of the radial, interosseous and ulnar arteries. Interosseous artery is diminutiv e in size. All three vessels are seen to the wrist with the ulnar and radial artery extending into th e hand to fill the palmar arches. Assessment of the palmar arches is limited due to positioning and enhancement. They are not clearly i dentified. Limited assessment of the digital arteries. There is segmental enhancement. Assessment is incomplete. If clinically warranted they should be assessed with dedicated arteriogram. The lungs are clear. Visualized muscular structures. Carpal tunnel limited in assessment due to CT te chnique. There is a 5 mm subpleural pulmonary nodule right upper lobe. IMPRESSION: 1. The subclavian, axillary, brachial, radial, and ulnar arteries are patent to the level wrist with no significant stenosis or atherosclerotic changes. Assessment of vascularity within the hand is limi katey as discussed above. If there is concern for a pulmonary arch or digital arterial abnormality leila elate with dedicated arteriogram. 2. There is a 5 mm subpleural pulmonary nodule right upper lobe.
== END | disposition home or self-care (01) ==
LOC: RADCTMAIN 15:50
PROVIDERS: ATTEND Orthopaedic Surgery Hand Surgery
DX: M79.601 Pain in right arm (principal); R91.1 Solitary pulmonary nodule
CPT/HCPCS: 73206; Q9967

== ENCOUNTER → 2023-02-08 | Outpatient (CLI) | payer BC ==
[2023-02-08 15:21] LABS: Basophils # (A) 0.05 X 10*3/uL (0.00-0.10); Basophils % (A) 0.9 %; Eosinophils # (A) 0.39 X 10*3/uL (0.04-0.35); HCT 43.8 % (37.2-46.3); HGB 14.3 d/dL (12.0-15.0); Lymphocytes # (A) 1.27 X 10*3/uL (0.90-5.00); Lymphocytes % (A) 22.9 %; MCH 28.4 pg (27.0-32.0); MCHC 32.6 d/dL (32.0-37.0); MCV 87.1 FL (80.0-97.0); Mean Platelet Volume 12.4 FL (9.5-12.2); Monocytes # (A) 0.58 X 10*3/uL (0.20-1.00); Monocytes % (A) 10.5 %; NRBC Per 100 WBC 0 X 10*3/uL (0.00-0.01); Neutrophils # (A) 3.23 X 10*3/uL (1.80-7.70); Neutrophils % (A) 58.3 %; Platelet Count 219 X 10*3/uL (140-440); RBC 5.03 X 10*6/uL (4.10-5.20); RDW 13.5 % (11.5-14.5); WBC 5.54 X 10*3/uL (4.50-10.00)
[2023-02-08 15:33] LABS: BUN/Creat Ratio 26.71 Ratio (12.00-20.00); Blood Urea Nitrogen 18.7 mg/dL (9.0-27.0); Calcium 9.6 mg/dL (8.7-10.3); Carbon Dioxide 26.1 mmol/L (21.6-31.8); Chloride 105 mmol/L (96-109); Glucose 101 mg/dL (70-110); Potassium 3.8 mmol/L (3.5-5.5); Sodium 143 mmol/L (135-145)
== END | disposition home or self-care (01) ==
LOC: LABWHC1 09:27
PROVIDERS: ATTEND Orthopaedic Surgery Hand Surgery
DX: Z01.812 Encounter for preprocedural laboratory examination (principal); G56.01 Carpal tunnel syndrome, right upper limb; M65 Synovitis and tenosynovitis; M65.331 Trigger finger, right middle finger; M65.351 Trigger finger, right little finger
CPT/HCPCS: 80048; 85025

== ENCOUNTER 2023-02-15 06:57 | Day surgery (SDC) | payer BC ==
--- NOTE | 2023-02-14 12:35 | P.HPOR ---
History of Present Illness H&P Date: 02/14/23 Subjective: This is a 57 year old female that presents today for follow up evaluation regarding a 4 week history of progressively worsening swelling, pain, stiffness and numbness and tingling in the hand and wrist. She denies any injury or inciting event.The hand and fingers are still locked in complete flexion and the middle and ring finger are numb. She denies any fevers or chills. Physical Examination: RUE: AIN/PIN/Radial/Ulnar/Median motor limited, able to wiggle fingers. Ulnar/Median sensation is diminished but intact to light tough. 2+/4 Radial/Ulnar pulses palpated. 3/5 APB, 3/5 FDI. Negative Finkelsteins, negative CMC grind, positive Durkan's compression. Swelling/edema of wrist/hand. No signs of erythema or deep space infection. Cap refill <3 seconds to all digits. Hand and fingers are now warm to touch. Fingers all held down in locked position with TTP over A1 pulleys, unable to be passively extended. Imaging: DUS and CTA of RUE were reviewed and demonstrate no abnormality. Impression: 1.) Right carpal tunnel syndrome 2.) Right index, middle, ring, and small finger stenosing tenosynovitis Plan: Diagnosis and treatment options were discussed with the patient. I discussed with the patient that she has findings consistent with carpal tunnel syndrome as well as severe stenosing tenosynovitis of the index, middle, ring, and small fingers. DUS and CTA results were discussed and there are no findings of vascular compromise to the RUE. She is scheduled for a right endoscopic vs open carpal tunnel release and right index, middle, ring and small finger A1 shannan release. Risks and benefits of surgery including bleeding, infection, damage to surrounding tissue, need for further surgery, possible need to convert to open procedure, residual numbness were discussed and the patient wished to go forward with surgery. The patient was agreeable with this plan. CC: Anitha Hager DO Orthopedic Hand/Upper Extremity Surgeon Past Medical History Past Medical History: Asthma, Hyperlipidemia, Hypertension Additional Past Medical History / Comment(s): Kidney stones, mitral valve prolapse History of Any Multi-Drug Resistant Organisms: None Reported Additional Past Surgical History / Comment(s): Kidney stone removed Past Anesthesia/Blood Transfusion Reactions: No Reported Reaction Smoking Status: Never smoker Medications and Allergies Home Medications Medication Instructions Recorded Confirmed Type Fluticasone/Vilanterol [Breo 1 puff INHALATION RT-DAILY 09/27/18 02/14/23 History Ellipta 100-25 Mcg Inhaler] Losartan Potassium 100 mg PO DAILY 09/27/18 02/14/23 History ZOLMitriptan 5 mg PO DAILY PRN 09/27/18 02/14/23 History cloNIDine HCL [Catapres] 0.3 mg PO HS 09/27/18 02/14/23 History Albuterol Sulfate [Proair Hfa] 2 puff INHALATION RT-Q4H PRN 02/01/21 02/14/23 History Aspirin EC [Ecotrin Low Dose] 81 mg PO DAILY 02/01/21 02/14/23 History Atorvastatin Calcium [Lipitor] 10 mg PO HS 02/01/21 02/14/23 History Multivitamins, Thera [Multivitamin 1 tab PO DAILY 02/01/21 02/14/23 History (formulary)] Ondansetron Odt [Zofran Odt] 4 mg PO Q8HR PRN #10 tab 02/01/21 02/14/23 Rx Tamsulosin [Flomax] 0.4 mg PO DAILY #7 cap 02/01/21 02/14/23 Rx Topiramate [Topamax] 50 mg PO DAILY 02/01/21 02/14/23 History amLODIPine [Norvasc] 10 mg PO DAILY 02/01/21 02/14/23 History Allergies Allergy/AdvReac Type Severity Reaction Status Date / Time Penicillins Allergy Unknown Verified 02/14/23 08:17 Childhood Physical Examination Osteopathic Statement: *. No significant issues noted on an osteopathic structural exam other than those noted in the History and Physical/Consult.
[2023-02-15] MEDS ORDERED: ONDANSETRON 4 MG/2 ML VIAL IVP ONE ×2 (07:13→10:56)
[2023-02-15] MEDS ORDERED: LIDOCAINE 1% (10MG/ML) FOR IV START INTRADERMA PRN (07:13)
[2023-02-15] MEDS ORDERED: MIDAZOLAM 2 MG/2 ML VIAL IV PRN (07:13)
[2023-02-15] MEDS ORDERED: HYDROmorphone 0.5 MG/0.5 ML SYRINGE IVP PRN (07:13)
[2023-02-15] MEDS ORDERED: DEXAMETHASONE SOD PHOSPHATE 4 MG/ML 1 ML VIAL IV ONE (07:13)
[2023-02-15] MEDS ORDERED: LACTATED RINGERS 1,000 ML IV SCH (07:13)
[2023-02-15] MEDS ORDERED: BUPIVACAINE (PF) 0.5% 30 ML VIAL SQ ONE ×3 (08:01→08:59)
[2023-02-15] MEDS ORDERED: MIDAZOLAM 2 MG/2 ML VIAL ONE (08:02)
[2023-02-15] MEDS ORDERED: fentaNYL (PF) 50 MCG/ML 2 ML AMP ONE (08:02)
[2023-02-15] MEDS ORDERED: PROPOFOL 10 MG/ML 20 ML VIAL IV ONE (08:02)
[2023-02-15] MEDS ORDERED: LIDOCAINE 2% INJ 20 MG/ML (2 ML VIAL) ONE (08:02)
[2023-02-15] MEDS ORDERED: LIDOCAINE 2% INJ 20 MG/ML SQ ONE ×2 (08:06→08:59)
[2023-02-15 09:20] VITALS: TEMP 97.4
--- NOTE | 2023-02-15 09:23 | P.OP ---
Date of Procedure: 02/14/23 Preoperative Diagnosis: 1.) Right carpal tunnel syndrome 2.) Right index finger stenosing tenosynovitis 3.) Right middle finger stenosing tenosynovitis 4.) Right ring finger stenosing tenosynovitis 5.) Right small finger stenosing tenosynovitis Postoperative Diagnosis: 1.) Right carpal tunnel syndrome 2.) Right index finger stenosing tenosynovitis 3.) Right middle finger stenosing tenosynovitis 4.) Right ring finger stenosing tenosynovitis 5.) Right small finger stenosing tenosynovitis Procedure(s) Performed: 1.) Right endoscopic carpal tunnel release 2.) Right index finger stenosing tenosynovitis A1 shannan release 3.) Right middle finger stenosing tenosynovitis A1 shannan release 4.) Right ring finger stenosing tenosynovitis A1 shannan release 5.) Right small finger stenosing tenosynovitis A1 shannan release Anesthesia: GETA Surgeon: Joe Bernal Estimated Blood Loss (ml): 0 Pathology: none sent Condition: stable Disposition: PACU Description of Procedure: This is a 57 year old female who presents today for a right endoscopic carpal tunnel release and right index, middle, ring and small finger trigger releases after having failed conservative treatment in the past and presenting with fixed encarcerate trigger fingers of her digits resulting in a completely clenched fist. Risks and benefits of surgery were discussed with the patient including bleeding, damage to surrounding tissue, infection, need to convert to open procedure, need for further surgery as well as risks of anesthesia including pulmonary embolism and even and the patient wished to proceed with surgical intervention. The patients was seen in the pre-operative area by myself. Consent and H&P were completed and updated. The correct extremity was marked in the pre-operative area by myself and all other questions were answered. Operative Narrative: The patient was brought to the operating room by the department of anesthesia. They remained on the portable stretcher and a rolling hand table was brought to the side of the operative extremity. Pre-operative time out was performed indicating the correct patient, procedure and laterality. All in the room agreed. The patient was then drifted off to sleep by the department of anesthesia. A nonsterile tourniquet was then applied to the operative extremity and the right upper extremity was then prepped and draped in normal sterile fashion. The operative extremity was the exsanguinated with an esmarch bandage and the tourniquet was inflated to 250mmHg. 15 blade scalpel was utilized to make a transverse incision on the palmar skin just ulnar to the palmaris longus tendon at the level of the distal wrist crease. Ragnell retractor was then placed radially and blunt dissection was performed to reveal the distal forearm fascia. This was lifted with fine Alexis pick ups and Littler tenotomy scissors were then used to open the forearm fascia transversely and a double skin hook was then placed. Hamate finder was placed into the carpal tunnel and then sequential sized dilators were inserted followed by the synovial elevator to separate the flexor tenosynovium from the undersurface of the transverse carpal ligament and a washboard texture was felt. The AdStack endoscopic carpal tunnel release system gun was the then inserted into the carpal tunnel hugging the deep portion of the transverse carpal ligament in line with the base of the ring finger. Transverse fibers of the ligament were directly visualized. Pressure was applied on the palm to reveal the distal extent of the transverse carpal ligament. The blade was then deployed and the distal half of the transverse carpal ligament was released. The scope was then brought distal again and remaining transverse fibers were incised with the blade. The proximal half of the transverse carpal ligament was then divided and again the scope was advanced distal and remaining transverse fibers were incised with the blade. The radial and ulnar leaflets were directly visualized and mobile consistent with complete release. Tenotomy scissors were then utilized to release the remaining distal forearm fascia under direct visualization taking care to preserve the palmar cutaneous branch of the median nerve. Skin closure was performed with interrupted 4-0 Monocryl suture followed by steri strips. Oblique incision was made centered in between the index and middle finger base in the palm. Blunt dissection was taken down to the level of the A1 shannan of the index finger. The flexor tendon sheath appeared to by filled with abundant clear tenosynovial fluid that hand a slight hemorrhagic tinge appearance with no signs of infection or purulence. Ragnell retractors were placed both radially and ulnarly to protect neurovascular bundles. Littler tenotomy scissors were then used to release the A1 shannan from proximal to distal under direct visualization. Proximal fascial attachments were released. The tendon was then taken through range of motion and no locking or catching was appreciated. Ragnells were then moved to the A1 shannan region of the middle finger through the same incision. Littler tenotomy scissors were then used to release the middle finger A1 shannan from proximal to distal under direct visualization. Proximal fascial attachments were released. The tendon was then taken through range of motion and no locking or catching was appreciated. A second oblique incision centered in between the ring and small fingers in the palm. Blunt dissection was taken down to the level of the A1 shannan of the ring finger. Ragnell retractors were placed both radially and ulnarly to protect neurovascular bundles. Littler tenotomy scissors were then used to release the ring finger A1 shannan from proximal to distal under direct visualization. Proximal fascial attachments were released. The tendon was then taken through range of motion and no locking or catching was appreciated. Ragnells were then moved to the A1 shannan region of the small finger through the same incision. Littler tenotomy scissors were then used to release the small finger A1 shannan from proximal to distal under direct visualization. Proximal fascial attachments were released. The tendon was then taken through range of motion and no locking or catching was appreciated. The wound was then closed with interrupted 4-0 nylon sutures in a horizontal mattress fashion. 50:50 mixture of 1% Lidocaine and 0.5% bupivacaine was injected into the subcutaneous tissues of the palmar skin, 12ccs total. Sterile dressing consisting of adaptic, 4x4s, webril, and an [place] wrap was applied. Tourniquet was let down and the hand was immediately well perfused. The patient was then woken by the department of anesthesia and transferred to PACU in stable condition. Joe Bernal D.O. Orthopedic Hand/Upper Extremity Surgeon
[2023-02-15] MEDS ORDERED: HYDROmorphone 0.5 MG/0.5 ML SYRINGE IVP ONE ×4 (09:37→10:09)
[2023-02-15] MEDS ORDERED: IV FLUID CONTINUATION 1,000 ML IV ONE (10:39)
[2023-02-15] MEDS ORDERED: ONDANSETRON 4 MG/2 ML VIAL ONE (10:55)
[2023-02-15 12:05] VITALS: PULSE 74
[2023-02-15 12:22] VITALS: BP 155/74; RESP 20
== END 2023-02-15 13:09 | disposition home or self-care (01) ==
LOC: OR 06:57
PROVIDERS: ATTEND Orthopaedic Surgery Hand Surgery
DX: G56.01 Carpal tunnel syndrome, right upper limb (principal); M65.841 Other synovitis and tenosynovitis, right hand; M65.351 Trigger finger, right little finger; M65.341 Trigger finger, right ring finger; M65.331 Trigger finger, right middle finger; I34.1 Nonrheumatic mitral (valve) prolapse; M65.321 Trigger finger, right index finger; J45.909 Unspecified asthma, uncomplicated; E78.5 Hyperlipidemia, unspecified; I10 Essential (primary) hypertension; Z79.51 Long term (current) use of inhaled steroids; Z79.82 Long term (current) use of aspirin; Z79.899 Other long term (current) drug therapy; Z88.0 Allergy status to penicillin
CPT/HCPCS: 29848; 26055 ×4; J2001 ×2; J2250; J1100; J0690; J2405; J3010; J2704; J1170; J0665

== ENCOUNTER → 2024-05-11 | Outpatient (CLI) | payer BC ==
[2024-05-11 13:46] LABS: HCT 45.7 % (37.2-46.3); HGB 14.8 g/dL (12.0-15.0); MCH 29.1 pg (27.0-32.0); MCHC 32.4 g/dL (32.0-37.0); MCV 89.8 FL (80.0-97.0); Mean Platelet Volume 12.9 FL (9.5-12.2); NRBC Per 100 WBC 0 X 10*3/uL (0.00-0.01); Platelet Count 231 X 10*3/uL (140-440); RBC 5.09 X 10*6/uL (4.10-5.20); RDW 13.1 % (11.5-14.5); WBC 6.05 X 10*3/uL (4.50-10.00)
[2024-05-11 14:18] LABS: ALT 19 U/L (8-44); AST 23 U/L (13-35); BUN/Creat Ratio 22.43 Ratio (12.00-20.00); Blood Urea Nitrogen 15.7 mg/dL (9.0-27.0); Calcium 8.9 mg/dL (8.7-10.3); Carbon Dioxide 24.1 mmol/L (21.6-31.8); Chloride 105 mmol/L (96-109); Chol/HDL Ratio 3.95 Ratio; Glucose 94 mg/dL (70-110); Potassium 4.3 mmol/L (3.5-5.5); Sodium 141 mmol/L (135-145); VLDL Calculation 16.52 mg/dL (5.00-40.00)
== END | disposition home or self-care (01) ==
LOC: LABWHC1 08:30
PROVIDERS: ATTEND Family Medicine
DX: I10 Essential (primary) hypertension (principal); E66.3 Overweight; E78.5 Hyperlipidemia, unspecified
CPT/HCPCS: 36415; 80048; 80061; 82306; 83036; 84443; 84450; 84460; 85027